=== PATIENT | male | born 1990 | race Caucasian/White ===

== ENCOUNTER → 2019-04-10 | Day surgery (SDC) | payer OTHER ==
[~2019-04-10] MED LIST: FENTANYL CITRATE/PF 100MCG/2 ML INJ ONE; HYOSCYAMINE 0.125 MG TAB ONE; LIDOCAINE HCL 2% LOCAL INJ 5 ML SDV VIAL INJ ONE; MIDAZOLAM HCL 2 MG/2 ML VIAL ONE; PRISTIQ ER50 MG PO; PROPOFOL IV EMULSION 10 MG/ML 50 ML VIAL ONE; QUETIAPINE FUMA25 MG
[2019-04-10 12:20] VITALS: BP 125/64
--- NOTE | 2019-04-10 18:50 | Operative Report ---
DATE OF PROCEDURE: 04/10/2019 SURGEON: Florentino Montanez MD PROCEDURES: EGD with esophageal dilatation and biopsies and colonoscopy with polypectomy. INDICATIONS FOR EGD: Dysphagia to solids. INDICATIONS FOR COLONOSCOPY: History of bright red blood per rectum, maternal grandfather with colon cancer. MEDICATIONS: The patient was done under MAC, please see anesthesiologist's note. PROCEDURE IN DETAIL: With the patient in the left lateral decubitus position, a flexible fiberoptic Olympus gastroscope was introduced into the esophagus under direct visualization without any difficulty. There were some concentric rings noted in the esophagus and biopsies were obtained to rule out eosinophilic esophagitis. There was some patchy intense erythema noted in the distal esophagus and a mild stricture at the GE junction that was dilated to size 52-[place]. The scope was then advanced with ease into the stomach, mucosa overlying the antrum and the body revealed some patchy erythema and [id number] edema, and biopsies were obtained and sent to stain for H. pylori. Pylorus was of normal contour and shape, was intubated with ease and the scope was advanced all the way to the second portion of the duodenum. Biopsies were obtained from the proximal second portion and duodenal bulb to rule out sprue. The scope was then withdrawn back into the stomach and retroflexed, and mucosa overlying the fundus and the cardia appeared to be within normal limits. The scope was then straightened out, it was subsequently withdrawn, and the patient tolerated the procedure well. IMPRESSION: 1. Rule out eosinophilic esophagitis. 2. Distal esophagitis. 3. Esophageal stricture, GE junction, dilated to size 52-[place]. 4. Gastritis, biopsied, biopsies sent to stain for Helicobacter pylori. 5. Rule out sprue. PLAN: Follow up histology. Initiate Protonix 40 mg 1 p.o. q.a.m. before meals. The patient was then turned around and after adequate lubrication of the anal canal, a flexible fiberoptic Olympus colonoscope was inserted into the rectum with ease and advanced all the way to the cecum. Mucosa overlying the cecum, ascending colon, transverse colon, and descending colon appeared to be within normal limits. One polyp was hot biopsied from the sigmoid colon. Two polyps were hot biopsied from the rectum. The scope was then retroflexed into the distal rectum and small internal hemorrhoids were noted, none of which was actively bleeding. The scope was then straightened out, it was subsequently withdrawn, and the patient tolerated the procedure well. IMPRESSION: 1. Sigmoid colon polyp, hot biopsied. 2. Rectal polyps x2, hot biopsied. 3. Internal hemorrhoids, none actively bleeding. PLAN: Follow up histology. Initiate high-fiber, low-fat diet. Initiate high-fiber supplement. Start Anucort-HC suppositories b.i.d. x10 days and p.r.n. The patient might benefit from a followup colonoscopy in 3 to 5 years. Florentino Montanez MD [facility] [place]AN[place] /[id number]
== END | disposition home or self-care (01) ==
LOC: ENDO 08:51
PROVIDERS: ATTEND Internal Medicine Gastroenterology
DX: K21.0 Gastro-esophageal reflux disease with esophagitis (principal); K22.2 Esophageal obstruction; K29.70 Gastritis, unspecified, without bleeding; K63.5 Polyp of colon; K62.1 Rectal polyp; K64.8 Other hemorrhoids; K29.80 Duodenitis without bleeding; K29.50 Unspecified chronic gastritis without bleeding; D12.5 Benign neoplasm of sigmoid colon
CPT/HCPCS: 43239; 43450; 45384; J2001; J2250; J2704; J3010; 45378